=== PATIENT | female | born 1980 | race Caucasian/White ===

== ENCOUNTER 2020-08-09 06:10 | Emergency (ER) | payer MEDICAID, SELFPAY ==
--- NOTE | 2020-08-09 | US_ITS ---
EXAMINATION: ULTRASOUND OF THE PELVIS CLINICAL INFORMATION: Rule out ectopic and confirm intrauterine . COMPARISON: Pelvic ultrasound dated 06/27/2019. TECHNIQUE: Transabdominal and transvaginal pelvic ultrasound. A transvaginal study was performed in addition to the transabdominal study which did not yield an adequate examination of the uterus and ovaries due to superimposed distended gas-filled loops of bowel. FINDINGS: Based on the patient's last menstrual period of 06/26/2020, a 6 week 2 day gestation is expected. Uterus: The uterus is anteverted and normal in size, measuring 9.1 x 4.7 x 5.5 cm. A single intrauterine gestational sac is identified with mean sac diameter of 0.5 cm, which equals 5 weeks 0 days. The yolk sac is visualized but no pole is seen at this early stage. No focal myometrial mass is seen. The internal cervical os is closed and cervical length is normal measuring 3.7 cm. Ovaries: The ovaries bilaterally are visualized and appear normal, with the right ovary measuring 3.2 x 1.1 x 1.1 cm (2.2 mL volume) and the left ovary measuring 2.4 x 1.2 x 2.4 cm (3.4 mL volume). Normal follicles are seen in both ovaries. Other: No adnexal mass or free fluid collection seen. IMPRESSION: Based on an intrauterine gestational sac with mean sac diameter of 0.5 cm, a 5 week 0 day gestation is confirmed with estimated date of delivery of 04/02/2021. At this early stage, only a yolk sac is seen and no pole is visualized. Recommend serial ultrasound assessment and beta hCG assessment to document normal progression of .
[2020-08-09 06:13] VITALS: BP 144/70; PULSE 65; RESP 18; TEMP 35.8; O2SAT 100; BMI 76.5
--- NOTE | 2020-08-09 06:31 | ED.ABDPAIN ---
HPI - Abdominal Pain General Chief Complaint: Vaginal Bleeding <Freya Hair MD - Last Filed: 08/09/20 06:45> Stated Complaint: Vaginal Bleeding <Freya Hair MD - Last Filed: 08/09/20 06:45> Time Seen by Provider: 08/09/20 06:22 <Freya Hair MD - Last Filed: 08/09/20 06:45> Source: patient <Freya Hair MD - Last Filed: 08/09/20 06:45> Mode of arrival: ambulatory <Freya Hair MD - Last Filed: 08/09/20 06:45> Limitations: no limitations <Freya Hair MD - Last Filed: 08/09/20 06:45> History of Present Illness HPI narrative: This is a 39-year-old female who presents with worsening lower pelvic/abdominal cramping since last night and then noted blood on the toilet paper this morning. She says that the cramping has been ongoing since her LMP on 06/26 but there has been no associated fever, chills, diarrhea, nausea, vomiting, urinary pain/burning. She confirmed her with home tests. <Freya Hair MD - Last Filed: 08/09/20 06:45> Related Data Hx Last Menstrual Period: 06/26, EGA: 6 weeks and 2 days <Freya Hair MD - Last Filed: 08/09/20 06:45> Patient : Yes <Freya Hair MD - Last Filed: 08/09/20 06:45> Home Medications: Home Medications Medication Instructions Recorded Confirmed No Known Home Meds 08/09/20 08/09/20 <Freya Hair MD - Last Filed: 08/09/20 06:45> Allergies/Adverse Reactions: Allergies Allergy/AdvReac Type Severity Reaction Status Date / Time shrimp Allergy Shortness Verified 08/09/20 06:19 of Breath <Freya Hair MD - Last Filed: 08/09/20 06:45> Review of Systems Review of Systems pertinent positives and negatives as stated in HPI 10 point review of systems is otherwise negative. <MD Betty Chavez Last Filed: 08/09/20 06:45> Physical Exam Vital Signs and I&O and Narrative: Vital Signs and I&O: Vital Signs Temp 96.4 F L 08/09/20 06:13 Pulse 65 08/09/20 06:13 Resp 18 08/09/20 06:13 BP 144/70 H 08/09/20 06:13 Pulse Ox 100 08/09/20 06:13 Intake & Output 08/08/20 08/09/20 08/09/20 18:59 06:59 18:59 Weight 196 kg Body Mass Index 76.5 <Freya Hair MD - Last Filed: 08/09/20 06:45> Vital Signs and I&O: Vital Signs Temp 96.4 F L 08/09/20 06:13 Pulse 65 08/09/20 06:13 Resp 18 08/09/20 06:13 BP 144/70 H 08/09/20 06:13 Pulse Ox 100 08/09/20 06:13 Intake & Output 08/08/20 08/09/20 08/09/20 18:59 06:59 18:59 Weight 196 kg Body Mass Index 76.5 <Chuy Whitaker MD - Last Filed: 08/09/20 10:42> VITAL SIGNS: Reviewed. GENERAL: Well developed, well nourished, in no acute distress. HEAD: Normocephalic/atraumatic, EYES: PERRLA, EOMI intact without pain, no nystagmus/pallor/icterus noted EARS: Ext canals without abnormality, TMs non-bulging and non-erythematous NOSE: Nares patent bilateral OROPHARYNX: no oral lesions noted, posterior pharynx clear and non-erythematous without noted tonsillar enlargement/erythema/exudates NECK: Supple, no adenopathy LUNGS: Normal breath sounds. No adventitious sounds or accessory muscle use. SpO2<> CARDIOVASCULAR: Regular rate and rhythm without noted murmurs, no JVD or lower extremity edema. ABDOMEN: Soft, mild tenderness to palpation, non-distended with bowel sounds. No rigidity. No guarding. No palpable masses or hernias noted MUSCULOSKELETAL: No tenderness, deformities, or effusions noted on gross inspection. EXTREMITIES: No cyanosis, clubbing or edema. SKIN: Inspection of the skin reveals no rashes, ulcerations, jaundice, pallor, or petechiae. NEUROLOGIC: Alert and oriented x 4. Strength and sensation to light touch were grossly intact <Freya Hair MD - Last Filed: 08/09/20 06:45> Course Course Hospital Course: this is a 39-year-old female with history and clinical presentation concerning for possible ectopic, SAB, benign first-trimester spotting. Will establish patient's Rh status as well as ruling out ectopic and confirming IUP. <Freya Hair MD - Last Filed: 08/09/20 06:45> Reevaluation(s) Reevaluation #1: Signed patient out to Dr. Whitaker with above plan. <Freya Hair MD - Last Filed: 08/09/20 06:45> this is a 39-year-old female otherwise healthy came in after had a positive home test, patient came in for lower abdominal cramps and vaginal bleed since this morning. Patient initially was seen by Dr. Smallwood and signed out to me to check on the blood, ultrasound, and re-evaluate the patient. Patient appears stable in the emergency department with stable vital sign, patient admitted still vaginal dripping when she went to the bathroom after the ultrasound. Ultrasound showed empty yolk sac without confirmation of inside embryo. 1. stable vital signs, stable labs specifically H&H. Blood type is A positive. 2. given its early with a low HCG 3 options were discussed with the patient option 1. Still normal with threatened patient was advised to stay home, rest, avoid any strenuous activity, no intercourse , and follow-up with OBGYN in 48 hours to repeat hCG. Option 2. ectopic patient has no adnexal tenderness no severe bleeding stable vital sign, patient was advised to return and seek immediate medical attention if worsening of the above symptoms. Of smiley 3. Missed . Importance of scheduling appointment in 2 days with OBGYN was explained to the patient. <Chuy Whitaker MD - Last Filed: 08/09/20 10:42> Time: 06:44 <Freya Hair MD - Last Filed: 08/09/20 06:45> 10:35 <Chuy Whitaker MD - Last Filed: 08/09/20 10:42> MDM - Abdominal Pain MDM Narrative Medical decision making narrative: 39-year-old female about 5 weeks came in with vaginal bleed. <Chuy Whitaker MD - Last Filed: 08/09/20 10:42> Differential Diagnosis Differential diagnosis narrative:: Early normal , ectopic , missed , threatened . <Chuy Whitaker MD - Last Filed: 08/09/20 10:42> Medical Records Attestation: I reviewed the patient's medical records. <Chuy Whitaker MD - Last Filed: 08/09/20 10:42> Lab Data Result diagrams: : 08/09/20 06:38 08/09/20 06:38 <Freya Hair MD - Last Filed: 08/09/20 06:45> Labs: Lab Results 08/09/20 08/09/20 08/09/20 Range/Units 06:38 06:38 06:38 WBC 4.7 L (4.8-10.8) X10*3/uL RBC 4.51 (4.20-5.50) X10*6/uL Hgb 13.1 (12.0-16.0) g/dl Hct 40.6 (37-47) % MCV 90.0 (80-98) fL MCH 29.0 (27.0-33.0) pg MCHC 32.3 (31.0-35.0) g/dl RDW 12.8 (11.0-16.0) % Plt Count 261 (160-400) X10*3/uL MPV 11.3 (9.4-12.3) fL Immature Gran % (Auto) 0.2 (0.0-0.4) % Neut % (Auto) 65.9 (45-73) % Lymph % (Auto) 22.9 (20-40) % [place] % (Auto) 8.3 (2-11) % Eos % (Auto) 2.1 (0-4) % Baso % (Auto) 0.6 (0-2) % Neut # (Auto) 3.1 (2.0-8.3) X10*3/uL Lymph # (Auto) 1.1 L (1.2-4.9) X10*3/uL [place] # (Auto) 0.4 (0.1-1.2) X10*3/uL Eos # (Auto) 0.1 (0.0-0.4) X10*3/uL Baso # (Auto) 0.0 (0.0-0.2) X10*3/uL Abs Immat Gran (auto) 0.01 (0.00-0.03) X10*3/uL Absolute Nucleated RBC 0.000 (0.0-0.012) X10*3/uL Nucleated RBC % (auto) 0.0 (0.0-0.2) /100WBC Sodium (135-145) mmol/L Potassium (3.3-5.1) mmol/l Chloride (96-108) mmol/L Carbon Dioxide (22-29) mmol/L Anion Gap (12-20) BUN (9-16) mg/dL Creatinine (0.5-1.4) mg/dL Estim Creat Clear Calc Estimated GFR Random Glucose (60-115) mg/dL Calcium (8.4-10.2) mg/dL Total Bilirubin (0.0-1.0) mg/dL AST (5-31) U/L ALT (0-31) U/L Alkaline Phosphatase (39-117) U/L Total Protein (6.5-8.0) g/dL Albumin (3.5-5.0) g/dL Beta HCG, Quant 1661 mIU/mL Urine Color Urine Appearance Urine pH (5.0-8.0) Ur Specific [place] (1.005-1.025) Urine Protein (NEG-TRACE) MG/DL Urine Glucose (UA) (NEG) MG/DL Urine Ketones (NEG) MG/DL Urine Blood (NEG) Urine Nitrite (NEG) Ur Leukocyte Esterase (NEG) Urine RBC (0) /HPF Urine WBC (0-4) /HPF Ur Squamous Epith Cells /LPF Urine Bacteria Urine Test (NEGATIVE) Blood Type A Positive 08/09/20 08/09/20 Range/Units 06:38 08:19 WBC (4.8-10.8) X10*3/uL RBC (4.20-5.50) X10*6/uL Hgb (12.0-16.0) g/dl Hct (37-47) % MCV (80-98) fL MCH (27.0-33.0) pg MCHC (31.0-35.0) g/dl RDW (11.0-16.0) % Plt Count (160-400) X10*3/uL MPV (9.4-12.3) fL Immature Gran % (Auto) (0.0-0.4) % Neut % (Auto) (45-73) % Lymph % (Auto) (20-40) % [place] % (Auto) (2-11) % Eos % (Auto) (0-4) % Baso % (Auto) (0-2) % Neut # (Auto) (2.0-8.3) X10*3/uL Lymph # (Auto) (1.2-4.9) X10*3/uL [place] # (Auto) (0.1-1.2) X10*3/uL Eos # (Auto) (0.0-0.4) X10*3/uL Baso # (Auto) (0.0-0.2) X10*3/uL Abs Immat Gran (auto) (0.00-0.03) X10*3/uL Absolute Nucleated RBC (0.0-0.012) X10*3/uL Nucleated RBC % (auto) (0.0-0.2) /100WBC Sodium 136 (135-145) mmol/L Potassium 3.8 (3.3-5.1) mmol/l Chloride 102 (96-108) mmol/L Carbon Dioxide 28 (22-29) mmol/L Anion Gap 10 L (12-20) BUN 11 (9-16) mg/dL Creatinine 0.79 (0.5-1.4) mg/dL Estim Creat Clear Calc 169.1 Estimated GFR > 60 Random Glucose 94 (60-115) mg/dL Calcium 9.0 (8.4-10.2) mg/dL Total Bilirubin 0.3 (0.0-1.0) mg/dL AST 12 (5-31) U/L ALT 10 (0-31) U/L Alkaline Phosphatase 67 (39-117) U/L Total Protein 7.6 (6.5-8.0) g/dL Albumin 4.3 (3.5-5.0) g/dL Beta HCG, Quant mIU/mL Urine Color STRAW Urine Appearance CLEAR Urine pH 6.5 (5.0-8.0) Ur Specific [place] <= 1.005 (1.005-1.025) Urine Protein NEG (NEG-TRACE) MG/DL Urine Glucose (UA) NEG (NEG) MG/DL Urine Ketones NEG (NEG) MG/DL Urine Blood 1+ H (NEG) Urine Nitrite NEG (NEG) Ur Leukocyte Esterase NEG (NEG) Urine RBC 1-4 (0) /HPF Urine WBC 0 (0-4) /HPF Ur Squamous Epith Cells 1+ /LPF Urine Bacteria Not Reportable Urine Test POSITIVE H (NEGATIVE) Blood Type <Freya Hair MD - Last Filed: 08/09/20 06:45> Lab Results 08/09/20 08/09/20 08/09/20 Range/Units 06:38 06:38 06:38 WBC 4.7 L (4.8-10.8) X10*3/uL RBC 4.51 (4.20-5.50) X10*6/uL Hgb 13.1 (12.0-16.0) g/dl Hct 40.6 (37-47) % MCV 90.0 (80-98) fL MCH 29.0 (27.0-33.0) pg MCHC 32.3 (31.0-35.0) g/dl RDW 12.8 (11.0-16.0) % Plt Count 261 (160-400) X10*3/uL MPV 11.3 (9.4-12.3) fL Immature Gran % (Auto) 0.2 (0.0-0.4) % Neut % (Auto) 65.9 (45-73) % Lymph % (Auto) 22.9 (20-40) % [place] % (Auto) 8.3 (2-11) % Eos % (Auto) 2.1 (0-4) % Baso % (Auto) 0.6 (0-2) % Neut # (Auto) 3.1 (2.0-8.3) X10*3/uL Lymph # (Auto) 1.1 L (1.2-4.9) X10*3/uL [place] # (Auto) 0.4 (0.1-1.2) X10*3/uL Eos # (Auto) 0.1 (0.0-0.4) X10*3/uL Baso # (Auto) 0.0 (0.0-0.2) X10*3/uL Abs Immat Gran (auto) 0.01 (0.00-0.03) X10*3/uL Absolute Nucleated RBC 0.000 (0.0-0.012) X10*3/uL Nucleated RBC % (auto) 0.0 (0.0-0.2) /100WBC Sodium (135-145) mmol/L Potassium (3.3-5.1) mmol/l Chloride (96-108) mmol/L Carbon Dioxide (22-29) mmol/L Anion Gap (12-20) BUN (9-16) mg/dL Creatinine (0.5-1.4) mg/dL Estim Creat Clear Calc Estimated GFR Random Glucose (60-115) mg/dL Calcium (8.4-10.2) mg/dL Total Bilirubin (0.0-1.0) mg/dL AST (5-31) U/L ALT (0-31) U/L Alkaline Phosphatase (39-117) U/L Total Protein (6.5-8.0) g/dL Albumin (3.5-5.0) g/dL Beta HCG, Quant 1661 mIU/mL Urine Color Urine Appearance Urine pH (5.0-8.0) Ur Specific [place] (1.005-1.025) Urine Protein (NEG-TRACE) MG/DL Urine Glucose (UA) (NEG) MG/DL Urine Ketones (NEG) MG/DL Urine Blood (NEG) Urine Nitrite (NEG) Ur Leukocyte Esterase (NEG) Urine RBC (0) /HPF Urine WBC (0-4) /HPF Ur Squamous Epith Cells /LPF Urine Bacteria Urine Test (NEGATIVE) Blood Type A Positive 08/09/20 08/09/20 Range/Units 06:38 08:19 WBC (4.8-10.8) X10*3/uL RBC (4.20-5.50) X10*6/uL Hgb (12.0-16.0) g/dl Hct (37-47) % MCV (80-98) fL MCH (27.0-33.0) pg MCHC (31.0-35.0) g/dl RDW (11.0-16.0) % Plt Count (160-400) X10*3/uL MPV (9.4-12.3) fL Immature Gran % (Auto) (0.0-0.4) % Neut % (Auto) (45-73) % Lymph % (Auto) (20-40) % [place] % (Auto) (2-11) % Eos % (Auto) (0-4) % Baso % (Auto) (0-2) % Neut # (Auto) (2.0-8.3) X10*3/uL Lymph # (Auto) (1.2-4.9) X10*3/uL [place] # (Auto) (0.1-1.2) X10*3/uL Eos # (Auto) (0.0-0.4) X10*3/uL Baso # (Auto) (0.0-0.2) X10*3/uL Abs Immat Gran (auto) (0.00-0.03) X10*3/uL Absolute Nucleated RBC (0.0-0.012) X10*3/uL Nucleated RBC % (auto) (0.0-0.2) /100WBC Sodium 136 (135-145) mmol/L Potassium 3.8 (3.3-5.1) mmol/l Chloride 102 (96-108) mmol/L Carbon Dioxide 28 (22-29) mmol/L Anion Gap 10 L (12-20) BUN 11 (9-16) mg/dL Creatinine 0.79 (0.5-1.4) mg/dL Estim Creat Clear Calc 169.1 Estimated GFR > 60 Random Glucose 94 (60-115) mg/dL Calcium 9.0 (8.4-10.2) mg/dL Total Bilirubin 0.3 (0.0-1.0) mg/dL AST 12 (5-31) U/L ALT 10 (0-31) U/L Alkaline Phosphatase 67 (39-117) U/L Total Protein 7.6 (6.5-8.0) g/dL Albumin 4.3 (3.5-5.0) g/dL Beta HCG, Quant mIU/mL Urine Color STRAW Urine Appearance CLEAR Urine pH 6.5 (5.0-8.0) Ur Specific [place] <= 1.005 (1.005-1.025) Urine Protein NEG (NEG-TRACE) MG/DL Urine Glucose (UA) NEG (NEG) MG/DL Urine Ketones NEG (NEG) MG/DL Urine Blood 1+ H (NEG) Urine Nitrite NEG (NEG) Ur Leukocyte Esterase NEG (NEG) Urine RBC 1-4 (0) /HPF Urine WBC 0 (0-4) /HPF Ur Squamous Epith Cells 1+ /LPF Urine Bacteria Not Reportable Urine Test POSITIVE H (NEGATIVE) Blood Type <Chuy Whitaker MD - Last Filed: 08/09/20 10:42> Discharge Plan Discharge Clinical Impression: Normal , , missed, , threatened <Freya Hair MD - Last Filed: 08/09/20 06:45> Patient Disposition: Home, Self-Care <Freya Hair MD - Last Filed: 08/09/20 06:45> Instructions: Threatened Miscarriage (ED) <Freya Hair MD - Last Filed: 08/09/20 06:45> Additional Instructions: 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 <Freya Hair MD - Last Filed: 08/09/20 06:45> Prescriptions: No Action No Known Home Meds RF: 0 <Freya Hair MD - Last Filed: 08/09/20 06:45> Stand Alone Forms: Work/School Release <Freya Hair MD - Last Filed: 08/09/20 06:45> Sign Out Sign Out Data: Patient Sign Out occurred on 08/09/20 at 06:54. After a detailed discussion of the patient's case, care was transferred from Freya Hair MD to Chuy Whitaker MD. Sign Out Comment: CC: Vaginal bleeding since this AM 39F, , EGA 6 wks 2 days based on LMP 06/26 confirmed by home test. Pelvic/abdominal cramping since then that acutely worsened since last night. - r/o ectopic, SAB - Confirm IUP - Rh status Last updated by Freya Hair MD at 08/09/20 06:49 <Freya Hair MD - Last Filed: 08/09/20 06:45> PMFSH Past Medical History Medical History: Medical History Migraines <Freya Hair MD - Last Filed: 08/09/20 06:45> Hx Last Menstrual Period: 06/26, EGA: 6 weeks and 2 days <Freya Hair MD - Last Filed: 08/09/20 06:45> Family History Family History: Family History Maternal Grandmother Hx of breast cancer <Freya Hair MD - Last Filed: 08/09/20 06:45> Social History Social History: Social History Alcohol intake: never Smoking Status: Never smoker Use of substances other than those prescribed or required for medical reasons: No Advance Directives: No Advance Directives Information Provided: No <Freya Hair MD - Last Filed: 08/09/20 06:45>
--- NOTE | 2020-08-09 06:43 | PC.NURSE ---
PT A&O, NO SOB OR CHEST PAIN. PT LAB AND LINED. PT CHANGE INTO HOSPITAL ATTIRE. PROVIDER IN TO ASSESS PT. PT WAITING TO BE SEEN BY ULTRA SOUND.
[2020-08-09 06:48] LABS: MANUAL DIFF FLAG NO
[2020-08-09 06:57] LABS: Basophils Percent Auto 0.6 % (0-2); Eosinophils Absolute Auto 0.1 X10*3/uL (0.0-0.4); Eosinophils Percent Auto 2.1 % (0-4); Hematocrit 40.6 % (37-47); Hemoglobin 13.1 g/dl (12.0-16.0); Imm Gran Abs Auto 0.01 X10*3/uL (0.00-0.03); Imm Gran Pct Auto 0.2 % (0.0-0.4); Lymphocytes Absolute Auto 1.1 X10*3/uL (1.2-4.9); Lymphocytes Percent Auto 22.9 % (20-40); Mean Corpuscular HGB Conc 32.3 g/dl (31.0-35.0); Mean Platelet Volume 11.3 fL (9.4-12.3); Monocytes Absolute Auto 0.4 X10*3/uL (0.1-1.2); Monocytes Percent Auto 8.3 % (2-11); Neutrophils Absolute Auto 3.1 X10*3/uL (2.0-8.3); Neutrophils Percent Auto 65.9 % (45-73); Platelet Count 261 X10*3/uL (160-400); Red Blood Count 4.51 X10*6/uL (4.20-5.50); Red Cell Distribution Width 12.8 % (11.0-16.0); White Blood Count 4.7 X10*3/uL (4.8-10.8)
[2020-08-09 07:21] LABS: Alanine Aminotransferase 10 U/L (0-31); Albumin Level 4.3 g/dL (3.5-5.0); Alkaline Phosphatase 67 U/L (39-117); Anion Gap 10 (12-20); Aspartate Amino Transferase 12 U/L (5-31); Bilirubin Total 0.3 mg/dL (0.0-1.0); Blood Urea Nitrogen 11 mg/dL (9-16); Carbon Dioxide 28 mmol/L (22-29); Chloride 102 mmol/L (96-108); Creatinine Clr Calc Pharmacy 169.1; Estimated Glomerular Filt Rate > 60; Glucose Random 94 mg/dL (60-115); Potassium 3.8 mmol/l (3.3-5.1); Sodium 136 mmol/L (135-145); Total Protein 7.6 g/dL (6.5-8.0)
[2020-08-09 07:24] LABS: HCG Quantitative 1661 mIU/mL
[2020-08-09 08:42] LABS: Glucose Urine UA NEG (NEG); Leukocyte Esterase Urine NEG (NEG); Nitrite Urine NEG (NEG); PH 6.5 (5.0-8.0); Specific Gravity - Urine <= 1.005 (1.005-1.025); Urine Blood 1+ (NEG); Urine Ketones NEG (NEG); Urine Protein NEG (NEG-TRACE)
[2020-08-09 08:45] LABS: Appearance Urine CLEAR; Color Urine STRAW
[2020-08-09 08:47] LABS: UPreg QC Valid YES; Urine Pregnancy POSITIVE (NEGATIVE)
[2020-08-09 08:57] LABS: Squamous Epithelial Cell Urine 1+ /LPF; WBC Urine 0 /HPF (0-4)
[2020-08-09 10:43] VITALS: TEMP 36.7
== END 2020-08-09 10:54 | disposition home or self-care (01) ==
PROVIDERS: Student in an Organized Health Care Education/Training Program; Emergency Provider Emergency Medicine; PCP Family Medicine
DX: O20.0 Threatened abortion (principal); Z3A.01 Less than 8 weeks gestation of pregnancy
CPT/HCPCS: 36415; 76801; 76817; 80053; 81001; 81025; 84702; 85025; 86900; 86901; 99284

== ENCOUNTER 2020-08-11 07:20 | Outpatient (REF) | payer MEDICAID, SELFPAY ==
[2020-08-11 08:16] LABS: HCG Quantitative 701 mIU/mL
== END 2020-08-11 07:21 | disposition home or self-care (01) ==
LOC: HO.LAB 07:20
PROVIDERS: PCP Family Medicine; Visit Provider Advanced Practice Midwife
DX: O03.9 Complete or unspecified spontaneous abortion without complication (principal)
CPT/HCPCS: 36415; 84702

== ENCOUNTER → 2020-08-14 10:37 | Outpatient (BNVA) | payer MEDICAID, SELFPAY | PROVIDERS: Visit Provider Advanced Practice Midwife | DX: O03.9 Complete or unspecified spontaneous abortion without complication (principal); Z31.9 Encounter for procreative management, unspecified | CPT/HCPCS: 99212 ==

== ENCOUNTER 2020-08-18 10:32 | Outpatient (REF) | payer MEDICAID, SELFPAY ==
[2020-08-18 11:57] LABS: HCG Quantitative 22 mIU/mL
== END 2020-08-18 10:33 | disposition home or self-care (01) ==
LOC: HO.LAB 10:32
PROVIDERS: PCP Family Medicine; Visit Provider Advanced Practice Midwife
DX: O03.9 Complete or unspecified spontaneous abortion without complication (principal)
CPT/HCPCS: 84702

== ENCOUNTER 2020-09-02 10:59 | Outpatient (REF) | payer MEDICAID, SELFPAY ==
[2020-09-02 12:30] LABS: HCG Quantitative < 2 mIU/mL
== END 2020-09-02 11:00 | disposition home or self-care (01) ==
LOC: HO.LAB 10:59
PROVIDERS: PCP Family Medicine; Visit Provider Advanced Practice Midwife
DX: O03.9 Complete or unspecified spontaneous abortion without complication (principal)
CPT/HCPCS: 84702

== ENCOUNTER 2020-10-21 13:47 | Outpatient (REF) | payer MEDICAID, SELFPAY ==
[2020-10-21 16:11] LABS: HCG Quantitative < 2 mIU/mL
[2020-10-21 16:25] LABS: Syphilis Screen Nonreactive (Nonreactive)
[2020-10-22 04:08] LABS: HBsAGNum1 0.17 S/CO (0.00-0.99); HIV AB/AG Nonreactive (Nonreactive); HIV Num 1 0.07 S/CO (0.00-0.99); Hepatitis B Surface Antigen Negative (Negative)
[2020-10-22 04:30] LABS: ~HepC Num1 0.07 S/CO (0.00-0.79); ~Hepatitis C Antibody Nonreactive (Nonreactive)
[2020-10-22 09:40] LABS: BV Int Neg Control Negative (Negative); BV Int Pos Control Positive (Positive)
[2020-10-29 05:53] LABS: HPV 16 RNA NOT DETECTED (NOT DETECTED); HPV mRNA E6/E7 rflx Detected (Not Detected)
[2020-11-14 14:22] LABS: CT PCR NOT DETECTED (Not Detect.); NG PCR NOT DETECTED (Not Detect.)
== END 2020-10-21 13:48 | disposition home or self-care (01) ==
LOC: HO.LAB 13:47
PROVIDERS: PCP Family Medicine; Visit Provider Advanced Practice Midwife
DX: Z01.419 Encounter for gynecological examination (general) (routine) without abnormal findings (principal); Z20.2 Contact with and (suspected) exposure to infections with a predominantly sexual mode of transmission; Z86.19 Personal history of other infectious and parasitic diseases
CPT/HCPCS: 84702; 86780; 86803; 87340; 87389; 87480; 87491; 87510; 87591; 87624; 87625; 87660; 88141; 88142

== ENCOUNTER 2020-10-26 12:56 | Outpatient (REF) | payer MEDICAID, SELFPAY | END 2020-10-26 12:57 | disposition home or self-care (01) | LOC: HO.LAB 12:56 | PROVIDERS: PCP Family Medicine; Visit Provider Internal Medicine | DX: Z20.828 Contact with and (suspected) exposure to other viral communicable diseases (principal) | CPT/HCPCS: C9803; U0003 ==

== ENCOUNTER 2020-11-12 10:52 | Outpatient (REF) | payer MEDICAID, SELFPAY | END 2020-11-12 10:53 | disposition home or self-care (01) | LOC: HO.LNP 10:52 | PROVIDERS: PCP Family Medicine; Visit Provider Obstetrics & Gynecology | DX: R87.610 Atypical squamous cells of undetermined significance on cytologic smear of cervix (ASC-US) (principal); R87.810 Cervical high risk human papillomavirus (HPV) DNA test positive | CPT/HCPCS: 57454; 88305 ==

== ENCOUNTER → 2020-11-20 10:58 | Outpatient (BNVA) | payer MEDICAID, SELFPAY | PROVIDERS: Visit Provider Obstetrics & Gynecology | DX: Z76.89 Persons encountering health services in other specified circumstances (principal) ==

== ENCOUNTER → 2020-11-23 10:46 | Outpatient (BNVA) | payer MEDICAID, SELFPAY | PROVIDERS: Visit Provider Advanced Practice Midwife | DX: Z23 Encounter for immunization (principal) | CPT/HCPCS: 90471; 99211 ==

== ENCOUNTER → 2021-02-11 10:55 | Outpatient (BNVA) | payer MEDICAID, SELFPAY | PROVIDERS: Visit Provider Advanced Practice Midwife | DX: Z23 Encounter for immunization (principal) | CPT/HCPCS: 90471; 99212 ==

== ENCOUNTER → 2021-09-03 11:18 | Outpatient (BNVA) | payer MEDICAID, SELFPAY | PROVIDERS: Visit Provider Advanced Practice Midwife | DX: Z92.29 Personal history of other drug therapy (principal) | CPT/HCPCS: 90471; 99211 ==

== ENCOUNTER 2021-11-11 09:09 | Outpatient (REF) | payer MEDICAID, SELFPAY ==
[2021-11-11 10:10] LABS: COVID-19 Test Negative (Negative)
== END 2021-11-11 09:10 | disposition home or self-care (01) ==
LOC: HO.LAB 09:09
PROVIDERS: Visit Provider Internal Medicine
DX: Z20.822 Contact with and (suspected) exposure to COVID-19 (principal)
CPT/HCPCS: 87635; C9803

== ENCOUNTER 2021-11-17 13:54 | Outpatient (REF) | payer MEDICAID, SELFPAY ==
[2021-11-17 15:14] LABS: COVID-19 Test Positive (Negative)
== END 2021-11-17 13:55 | disposition home or self-care (01) ==
LOC: HO.LAB 13:54
PROVIDERS: Visit Provider Internal Medicine
DX: Z20.822 Contact with and (suspected) exposure to COVID-19 (principal)
CPT/HCPCS: 87635; C9803